=== PATIENT | male | born 1970 | race Caucasian/White ===

== ENCOUNTER 2019-12-10 11:34 | Emergency (ER) | payer BC, SELFPAY ==
[2019-12-10 11:40] VITALS: BP 147/106; PULSE 79; RESP 18; TEMP 36.8; O2SAT 95
--- NOTE | 2019-12-10 12:04 | ED.GENADUL_ITS ---
Discharge Plan Disposition Patient Disposition: HOME Condition: Stable Discharge Details Chief Complaint: RespSymp Clinical Impression: Sinus congestion, Cough Primary Care Provider: Unknown,Unknown ED Provider: Loy Pruitt Home Meds and New Rx's Prescriptions: Continued ibuprofen 800 mg Tablet 800 mg PO BID PRNRF: 0 diltiazem HCl 300 mg Capsule,Extended Release 24 Hr 300 mg PO QAM RF: 0 levothyroxine 25 mcg Tablet 37 mcg PO DAILY RF: 0 montelukast 10 mg Tablet 10 mg PO DAILY RF: 0 zolpidem 10 mg Tablet 10 mg PO QHS PRNRF: 0 Discharge Instructions Additional Instructions: I suspect you are having seasonal allergies. Please use [id number] antihistamine like Sadia??dose according to label. COVID-19 testing was performed today and result is pending. Please maintain self-isolation and quarantine until result is available. Please contact your primary care physician to arrange follow-up. Return to the ER for any worsening or new concerning symptoms. Stand Alone Forms: PENDING COVID-19 TESTING Medical Decision Making 49-year-old male here with cough and sinus congestion since yesterday. Patient is afebrile, lungs are clear to auscultation, saturating well in no respiratory distress and hemodynamically stable. I believe patient symptoms are likely secondary to seasonal allergies. 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 Will send COVID-19 testing. Patient was advised of his mildly elevated blood pressure. He notes he just took his antihypertensive medication prior to arrival. I encouraged him to discuss this with his primary care physician. Patient notes he does not currently have a primary care physician in the area. I will ask care management to assist in arranging outpatient follow-up for establishment with primary care. HPI General Mode of arrival: ambulatory . Date/Time Provider Initiated Documentation: 12/10/19 11:36 . Limitations to Documentation: no limitations . Information obtained by: patient . 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 Patient notes cough and sinus congestion since yesterday. Symptoms are mild to moderate. He had some associated difficulty breathing because of the congestion yesterday. Symptoms improved today. No shortness of breath. No fever. No concerning travel history. Patient believes his symptoms are secondary to seasonal allergies. Patient was advised to seek medical assessment by his employer for COVID-19 testing. Related Data Home Medications Medication Instructions Recorded Confirmed diltiazem HCl 300 mg PO QAM 12/10/19 12/10/19 ibuprofen 800 mg PO BID PRN 12/10/19 12/10/19 levothyroxine 37 mcg PO DAILY 12/10/19 12/10/19 montelukast 10 mg PO DAILY 12/10/19 12/10/19 zolpidem 10 mg PO QHS PRN 12/10/19 12/10/19 Allergies Allergy/AdvReac Type Severity Reaction Status Date / Time No Known Allergies Allergy Unverified 12/10/19 11:53 General Stated Complaint: RespSymp GUNJAN: 4 Review of Systems All systems reviewed & are unremarkable except as noted in HPI and below Constitutional Constitutional: Denies fever(s) ENT Ears, Nose, Mouth, and Throat: Reports other (Sinus congestion) Cardiovascular Cardiovascular: Denies dyspnea Respiratory Respiratory: Reports cough and Denies dyspnea PFSH Social History Smoking/Tobacco Use Status: Current every day Tobacco Type: cigarettes Alcohol Intake: never Substance use type: does not use Do you feel safe at home: Yes Do you feel safe in your relationship?: Yes Exam Const General: cooperative and no acute distress HENCO General nose exam: nares normal Mouth: moist mucous membranes Throat: posterior oropharynx normal Eyes Conjunctivae: normal conjunctivae Sclera: normal sclerae Neck Neck: trachea midline and supple Resp Auscultation: clear to auscultation bilaterally, no rales, no rhonchi and no wheezes Cardio Rate: regular rate and not tachycardic Rhythm: regular rhythm Skin General skin exam: no rashes or lesions noted Neuro General: patient alert, patient awake and tone normal Psych Appearance: grossly normal Mental Status: mental status grossly normal Course Vital Signs Vital signs: Vital Signs Temperature 36.8 C 12/10/19 11:40 Pulse 79 12/10/19 11:40 Respiratory Rate 18 12/10/19 11:40 Blood Pressure 147/106 H 12/10/19 11:40 Pulse Oximetry 95 12/10/19 11:40 Temperature 36.8 C 12/10/19 11:40 Temperature Source Skin 12/10/19 11:40 Pulse 79 12/10/19 11:40 Respiratory Rate 18 12/10/19 11:40 Respiratory Effort Non-Labored 12/10/19 11:46 Respiratory Depth Normal 12/10/19 11:46 Blood Pressure 147/106 H 12/10/19 11:40 Blood Pressure Position Sitting 12/10/19 11:40 Pulse Oximetry 95 12/10/19 11:40 Oxygen Delivery Method Room Air 12/10/19 11:40 Oxygen Flow Rate 0 12/10/19 11:40 Pain Level 3 12/10/19 11:40 Comment 12/10/19 11:40
[2019-12-10 12:14] VITALS: BP 135/100; PULSE 79; RESP 18; TEMP 36.8; O2SAT 95
--- NOTE | 2019-12-10 14:44 | NUR.NOTE ---
Nursing Note: Referral to Care Management for need of a PCP given to them. Deisy Lockett
--- NOTE | 2019-12-11 14:24 | PDOC.ERCMPRO ---
- If Service Date Differs Date of service: 12/11/19 Time of Service: 14:24 Care Management Progress Note At the request of ED provider, CONSTANTINO coordinates a referral to Hodan Morelos, on-call doc, of [facility] to assist Lauren in establishing care with a local PCP.
[2019-12-12 01:26] LABS: SARS-CoV-2 RNA Undetected (Undetected)
--- NOTE | 2019-12-12 07:55 | NUR.NOTE ---
Nursing Note: Contacted patient and notified of negative covid results
== END 2019-12-10 12:16 | disposition home or self-care (01) ==
PROVIDERS: Emergency Provider Student in an Organized Health Care Education/Training Program
DX: R09.81 Nasal congestion (principal); R05 Cough; F17.210 Nicotine dependence, cigarettes, uncomplicated; I10 Essential (primary) hypertension; Z03.818 Encounter for observation for suspected exposure to other biological agents ruled out
CPT/HCPCS: 99282; U0003; 99283

== ENCOUNTER 2020-08-15 03:41 | Outpatient (CLI) | payer OTHER, SELFPAY ==
--- NOTE | 2020-08-15 | DI.MRI_ITS ---
EXAM: MR LOWER JOINT LT WO CLINICAL HISTORY: LT KNEE PAIN, SWELLING. TECHNIQUE: Multiplanar multisequence MRI was performed. COMPARISON: No exams were available for comparison FINDINGS: BONES: Small contusion involving the medial aspect of the medial tibial plateau. JOINTS: Articular cartilage is unremarkable. There is a small joint effusion. TENDONS: Extensor mechanism: Unremarkable. Medial retinaculum: Unremarkable. Lateral retinaculum: Unremarkable. Popliteus: Unremarkable. MUSCLES: Unremarkable. MENISCI: There is abnormal signal in the body of the medial meniscus consistent with a tear. The lat eral meniscus is unremarkable. SOFT TISSUES: Unremarkable. LIGAMENTS: Anterior Cruciate: Unremarkable. Posterior Cruciate: Unremarkable. Medial Collateral:There is MCL sprain. Lateral Collateral: Unremarkable. OTHER: There is a small popliteal cyst. IMPRESSION: 1. Findings of a tear of the body of the medial meniscus. 2. MCL sprain. 3. Contusion involving the medial aspect of the tibial plateau. DATA REPOSITORY:
== END 2020-08-15 04:01 ==
PROVIDERS: PCP Internal Medicine; Visit Provider Nurse Practitioner Family
DX: S83.242A Other tear of medial meniscus, current injury, left knee, initial encounter (principal); S83.412A Sprain of medial collateral ligament of left knee, initial encounter
CPT/HCPCS: 73721

== ENCOUNTER 2020-09-17 15:42 | Outpatient (CLI) | payer OTHER, SELFPAY ==
--- NOTE | 2020-09-17 14:15 | DI.RAD_ITS ---
Exam(s) XR KNEE LT 3V AP,LAT,GAYLE EXAM: XR KNEE LT 3V AP,LAT,GAYLE CLINICAL HISTORY: left knee pain. TECHNIQUE: 2D digital imaging was performed. COMPARISON: No exams were available for comparison FINDINGS: There is no evidence of fracture but there does appear to be a small joint effusion. No degenerative changes. No osseous lesions. Bone density is age-appropriate. IMPRESSION: DATA REPOSITORY: RADIATION DOSE DELIVERED:
== END 2020-09-17 15:43 | disposition home or self-care (01) ==
LOC: DIORS 15:43
PROVIDERS: PCP Internal Medicine; Visit Provider Student in an Organized Health Care Education/Training Program
DX: M25.562 Pain in left knee (principal); M25.462 Effusion, left knee
CPT/HCPCS: 73562

== ENCOUNTER 2021-04-08 02:22 | Outpatient (CLI) | payer BC, SELFPAY ==
[2021-04-08 14:14] LABS: Source Nasal/Nares
[2021-04-08 21:48] LABS: COVID-19 PCR Negative (Negative)
== END 2021-04-08 02:23 | disposition home or self-care (01) ==
LOC: LBO 02:22
PROVIDERS: PCP Internal Medicine; Visit Provider Student in an Organized Health Care Education/Training Program
DX: Z20.822 Contact with and (suspected) exposure to COVID-19 (principal)
CPT/HCPCS: 87635

== ENCOUNTER 2021-04-10 06:15 | Day surgery (SDC) | payer BC, OTHER, SELFPAY ==
[2021-04-10] VITALS (12 sets, daily range): BP systolic 98–136; BP diastolic 59–82; PULSE 42–81; RESP 12–19; TEMP 36.5–36.7; TEMPC 36.3; O2SAT 96–100; BMI 33.3
--- NOTE | 2021-04-10 07:00 | W.ANESPRE ---
General Info Date of Service Date Performed: 04/10/21 Height: 5 ft 9.5 in Weight: 103.873 kg Body Mass Index (BMI): 33.3 Surgical Procedure: Operation Date: 04/10/21 07:40 Proposed Procedures Side Surgeon p Knee Arthroscopy w/meniscal,chondral and synovial Left Rustam Monterroso MD Meds Allergies and Home Medications Allergies Allergy/AdvReac Type Severity Reaction Status Date / Time Penicillins Allergy Unknown Other (See Unverified 04/10/21 06:39 Comment) Home Medication Medication Instructions Recorded diltiazem HCl 300 mg PO QAM 12/10/19 levothyroxine 37 mcg PO DAILY 12/10/19 montelukast 10 mg PO DAILY 12/10/19 zolpidem 10 mg PO QHS PRN 12/10/19 atorvastatin 20 mg tablet 20 mg PO DAILY 09/17/20 aspirin 81 mg PO DAILY 14 Days #14 tab 04/10/21 naproxen 250 - 500 mg PO BID PRN #40 tab 04/10/21 oxycodone 5 - 10 mg PO Q4H PRN #16 tab 04/10/21 Current Visit Medications: Current Medications Generic Name Dose Route Start Last Admin Trade Name Freq PRN Reason Stop Dose Admin Ringer's Solution 1,000 mls @ 100 mls/hr 04/10/21 06:00 IV 05/09/21 23:59 INFUSION FREIDA Cefazolin Sodium/Dextrose 2 gm in 50 mls @ 100 mls/hr 04/10/21 06:00 Ancef Duplex IVPB 05/09/21 23:59 PREOP FREIDA IV Miscellaneous Supplies 1 each 04/10/21 06:00 Iv Access IV 05/09/21 23:59 DIRECTED FREIDA Sodium Chloride 0 ml 04/10/21 06:00 Normal Saline Flush 10 Ml Syr IV 05/09/21 23:59 PRN PRN Sodium Chloride 0 ml 04/10/21 06:00 Normal Saline 10 Ml Vial IJ 05/09/21 23:59 DIRECTED PRN Sterile Water 0 ml 04/10/21 06:00 Water,Injection,Sterile 10 Ml Vial IJ 05/09/21 23:59 DIRECTED PRN PFSH Active Problems Active Problems: Problem Status Onset Code Hypertension I10 Hypothyroidism E03.9 Hyperlipidemia E78.5 Insomnia G47.00 Tear of meniscus, knee, medial S83.249A Contusion of left tibia S80.12XA Medical History Active Problem List Hypertension (Chronic) Hypothyroidism (Chronic) Hyperlipidemia (Acute) Insomnia (Acute) Tear of meniscus, knee, medial (Acute) Contusion of left tibia (Acute) Medical History Awareness under anesthesia Renal calculi 2011 Right wrist fracture 2006 Medical History Comments:: Pt. states during his kidney stone removal and specifically his wrist surgery he remembers waking up and asking the surgeon Is that supposed to hurt? Surgical History Surgical History History of open reduction and internal fixation (ORIF) procedure (2006) right wrist orif, hardware removed in 2013 S/P cystoscopy with ureteral stent placement (2011) left ureteroscopy, laser lithotripsy, stone extraction Tobacco Smoking/Tobacco Use Status: Never Alcohol Alcohol Intake: current Alcohol intake frequency: a few times a month Alcohol type: beer Substance Use Substance use: Never Substance use type: does not use Details: several weeks since last intake of alcohol Vital Signs and Lab Results Vital Signs Most Recent Vital Signs in EMR: Most Recent Vital Signs Temp Pulse Resp BP Pulse Ox 36.7 C 67 16 120/82 96 04/10/21 06:44 04/10/21 06:44 04/10/21 06:44 04/10/21 06:44 04/10/21 06:44 Lab Results Blood Type / Crossmatch: No Data to Display Complete Blood Count: No Data to Display Complete Metabolic Panel: No Data to Display Liver Function Panel: No Data to Display Coagulation Panel: No Data to Display Cardiac Panel: No Data to Display Arterial Blood Gas: No Data to Display Venous Blood Gas: No Data to Display Pancreas Panel: No Data to Display Thyroid Panel: No Data to Display Infectious Disease: Coronavirus (COVID-19)(PCR) Negative (Negative) 04/08/21 10:25 04/08/21 Coronavirus 2019 Source Nasal/Nares 04/08/21 10:25 04/08/21 Blood Cultures: No Data to Display Toxicology Panel: No Data to Display Anesthesia Assessment and Plan Anesthesia History Personal History: Awareness Under Anesthesia Family History: No Family History of Anesthesia Complications Exercise Tolerance Exercise Tolerance: Metabolic Equivalents>4 Pertinent Negatives Pertinent Negatives: No Symptoms of GERD, No Major Cardiovascular Symptoms or Complaints, No Major Pulmonary Symptoms or Complaints and No History of CVA/TIA Cardiac & Pulmonary Exam Cardiac Exam: Normal S1/S2 Heart Sounds Pulmonary Exam: Clear Bilateral Breath Sounds Implantable Cardiac Device Does patient have a Pacemaker or an ICD?: No Airway Exam Known Difficult Airway: No Mallampati Class: 1 Mouth Opening: Normal (> 3cm) Thyromental Distance: Greater than 3 cm Neck Range of Motion: Full ROM Neck Circumference: Normal Teeth Condition: Normal Dentition Airway Comments: Crowns back lower ASA Classification ASA Score: ASA 2 Emergency Case?: No NPO Status NPO Status: NPO Clears >2 hours, Solids >8 hours Anesthesia Plan Resuscitation Status: Full Code Anesthesia Technique: General Anesthesia Airway Planned: LMA Monitors Used: Standard Monitors
[2021-04-10] MEDS: Lactated Ringers 1,000 ML 100 ML IV (07:24)
[2021-04-10] MEDS: ceFAZolin 2 GM/50 ML BAG IVPB (07:44)
[2021-04-10] MEDS: MORPHine 4 MG/ML SYR (08:30)
[2021-04-10] MEDS: EPINEPHrine 30 MG/30 ML VIAL (08:30)
--- NOTE | 2021-04-10 08:56 | W.PM.OP ---
Date of service: 04/10/21 Time of Service: 07:30 Operative Note Operative Note DATE OF PROCEDURE: 04/10/21 PRE-OP DIAGNOSIS: Left knee 1. Medial meniscus tear POST-OP DIAGNOSIS: same PROCEDURE: Left knee 1. Partial medial meniscectomy, CPT #96451 SURGEON: Rustam Monterroso COMPOSITION PROFESSOR: None None ANESTHESIA TYPE: Local By Surgeon and General LMA/ETT Refer to Anesthesia Record ESTIMATED BLOOD LOSS: 5 PATHOLOGY: none sent TOURNIQUET TIME: 0 Patient was transported to: PACU Patient's condition: stable Indications: Please see complete medical record for details. Findings: Exam under anesthesia: Full range of motion, no instability Arthroscopic findings: Significant, complex posterior horn medial meniscus tear. Radial component middle of the posterior horn about 50% white zone into the red-white zone with minor extension horizontally into the posterior horn inferior leaflet and more significant parrot-beak type flap extension towards the posterior horn meniscal body junction flipped behind the medial tibial plateau. Majority intact superior 50% leaflet. Largely intact articular cartilage throughout. Intact ACL. Intact lateral meniscus. Procedure Description: In the operating room, genral anesthesia was induced. The patient was positioned supine on the operating room table. All bony prominences were well-padded. Preoperative antibiotics were administered. The knee was prepped and draped in the usual sterile fashion. The correct patient, procedure, and side of the procedure were all verified prior to incision. Exam under anesthesia was performed. 10 cc of 0.25% bupivacaine containing epinephrine was infiltrated about the planned anteromedial and anterolateral knee arthroscopy portals. The portals were established and a complete diagnostic arthroscopy was performed with relevant findings detailed above. The mechanical shaver was used to remove redundant synovium from the anteromedial, anterolateral, and intercondylar areas to optimize visualization. Using a combination of hand instruments including meniscal biters and a power shaver and working through the anteromedial and anterolateral compartments the meniscus was debrided of all torn tissue to a stable margin. The center of the tear was debrided in a radial fashion with contouring into the posterior horn and with resection of the inferior displaced parrot-beak leaflet followed by contouring into the meniscal body. Care was taken to preserve as much meniscus tissue was possible. The meniscal remnant was probed and found to have a stable margin, stable root, and no other tears. The arthroscope was driven through the notch into the posterior medial compartment completing diagnostic arthroscopy and confirming no additional pathology or loose bodies posterior to the zone of injury. Under direct arthroscopic visualization an 18-gauge needle was passed into the knee from superolateral into the suprapatellar pouch. The knee was copiously irrigated with arthroscopic fluid until there was a clear effluent before being drained of all fluid. The anteromedial and anterolateral portals were closed in 3-0 Monocryl in a buried interrupted fashion. 20 cc of 0.25% bupivacaine with epinephrine containing 4 mg of morphine was infiltrated into the knee through the previously placed needle. Mastisol, Steri-Strips, and 4 x 4 gauze were applied over the incisions followed by sterile soft roll. The knee was then wrapped gently with an VALERIA comressive bandage. The patient awoke from anesthesia without complication and was transferred to the recovery room in a stable condition.
--- NOTE | 2021-04-10 08:58 | W.PM.DSUDISC ---
Discharge Plan Disposition Patient Disposition: HOME Condition: Stable Discharge Details Reason For Visit: Left knee surgery Attending Provider: Rustam Monterroso Primary Care Provider: Henry Corey Home Meds and New Rx's Prescriptions: New naproxen 250 mg tablet 250 - 500 mg PO BID PRN (Reason: Moderate pain or swelling) Qty: 40 RF: 0 aspirin 81 mg tablet,delayed release (DR/EC) 81 mg PO DAILY 14 Days Qty: 14 RF: 0 oxycodone 5 mg tablet 5 - 10 mg PO Q4H PRN (Reason: moderate to severe pain) Qty: 16 RF: 0 Continued atorvastatin 20 mg tablet 20 mg PO DAILY RF: 0 diltiazem HCl 300 mg Capsule,Extended Release 24 Hr 300 mg PO QAM RF: 0 levothyroxine 25 mcg Tablet 37 mcg PO DAILY RF: 0 montelukast 10 mg Tablet 10 mg PO DAILY RF: 0 zolpidem 10 mg Tablet 10 mg PO QHS PRNRF: 0 Discontinued ibuprofen 800 mg Tablet 800 mg PO BID PRNRF: 0 Discharge Instructions Additional Instructions: Surgery: Left knee arthroscopy with partial medial meniscectomy Activity: Weightbearing as tolerated. Advance range of motion as comfort allows. No knee brace or crutches needed as soon as comfortable. Recommend avoiding sports, pivoting, and squatting for 6-8 weeks. A physical therapy prescription will be sent electronically to start in 2 to 3 weeks. Prescriptions: Aspirin 81 mg take 1 daily to prevent a blood clot for 14 days Naproxen 250 mg take 1-2 every 12 hours with a meal as needed for moderate pain Oxycodone 5 mg take 1-2 every 4-6 hours as needed for severe pain You may use [id number] Tylenol (acetaminophen) as needed for mild pain. These pain medications may be taken all at once or in different combinations as needed. Also, recommend Colace (docusate) as a stool softener as surgery and pain medicine cause constipation. Dressings: Leave dressing in place for 3 days. May then remove and leave open to air or cover incisions with Band-Aids. May shower after 5 days. Follow-up: 10-[address] Monterroso Let us know right away if you develop any redness, drainage, fevers, chest pain, or trouble breathing. Do not drink alcohol or drive for at least 24 hours after anesthesia. Please call the office during business hours with any questions or concerns. Referrals: Rustam Monterroso MD [ [facility] STAFF PHYSICIAN] - Discharge Orders Discharge Orders: Discharge Order (Routine); Ordered 04/10/21 Ordered By: Rustam Monterroso DS: Diagnosis Discharge Diagnosis (1) Tear of meniscus, knee, medial: Status: Acute (2) Contusion of left tibia: Status: Acute
[2021-04-10] MEDS: fentaNYL 100 MCG/2 ML VIAL IVP (09:18)
--- NOTE | 2021-04-10 09:42 | W.ANESPOSTOP ---
Postoperative Evaluation Date, Time and Location Date Performed: 04/10/21 Time Performed: 09:42 Patient Location: Day Surgery Unit Vital Signs Most Recent Imported Vital Signs: Most Recent Vital Signs Temp Pulse Resp BP Pulse Ox 36.6 C 42 L 17 121/68 99 04/10/21 09:27 12 09:27 12 09:27 04/10/21 09:27 04/10/21 09:27 Most Recent Manually Entered Vital Signs: Adult Blood Pressure: 128/72 Heart Rate: 81 Respirations: 12 Oxygen Saturation (%): 98 Temperature (C): 36.3 C Pain Score (0-10 Scale): 3 Pain Score Most Recent Pain Score: Most Recent Pain Score Pain Level 3 04/10/21 09:27 Assessment Mental Status: Awake (Alert & Oriented to Patient Baseline) Airway and Respiratory Function: Patent airway with normal (patient baseline) respiratory exam Cardiovascular Function: Hemodynamically Stable Hydration Status: Adequately Hydrated Nausea & Vomiting: No Nausea or Vomiting Pain: Pt. Denies Any Pain Peripheral Nerve Block: Patient did not receive a nerve block
== END 2021-04-10 06:16 | disposition home or self-care (01) ==
PROVIDERS: PCP Internal Medicine; Visit Provider Student in an Organized Health Care Education/Training Program
PROC: (CPT 29870; principal; 2021-04-10 07:30)
DX: S83.232A Complex tear of medial meniscus, current injury, left knee, initial encounter (principal); X58.XXXA Exposure to other specified factors, initial encounter
CPT/HCPCS: 29881; J0131; J0690; J1100; J1885; J2001; J2250; J2270; J2405; J3010

== ENCOUNTER 2021-12-09 14:06 | Outpatient (CLI) | payer OTHER, SELFPAY ==
--- NOTE | 2021-12-09 13:45 | DI.RAD_ITS ---
Exam(s) XR KNEE LT 3V AP,LAT,GAYLE EXAM: XR KNEE LT 3V AP,LAT,GAYLE CLINICAL HISTORY: left knee pain. TECHNIQUE: 2D digital imaging was performed. Three views. COMPARISON: CR XR KNEE LT 3V AP,LAT,GAYLE from 09/17/2020 FINDINGS: BONES: No acute fracture is present. No bony destructive lesion is seen. JOINTS: The knee is normally aligned. No joint effusion is seen. Minimal periarticular spurring. SOFT TISSUE: Normal. IMPRESSION: Minimal degenerative changes. DATA REPOSITORY: RADIATION DOSE DELIVERED:
== END 2021-12-09 14:07 | disposition home or self-care (01) ==
LOC: DIORS 14:06
PROVIDERS: PCP Internal Medicine; Referring Provider Internal Medicine; Visit Provider Physician Assistant
DX: S83.242A Other tear of medial meniscus, current injury, left knee, initial encounter (principal); M17.12 Unilateral primary osteoarthritis, left knee; X58.XXXA Exposure to other specified factors, initial encounter
CPT/HCPCS: 73562

== ENCOUNTER → 2022-01-14 02:13 | Outpatient (CLI) | payer OTHER, SELFPAY ==
--- NOTE | 2022-01-14 07:00 | DI.MRI_ITS ---
Exam(s) MR LOWER JOINT LT WO EXAM: MR LOWER JOINT LT WO CLINICAL HISTORY: LEFT KNEE PAIN,TEAR OF MEDIAL MENISCUS,CONTUSION LT TIBIA,S83.249A,S80.12XA. TECHNIQUE: Multiplanar multisequence MRI was performed. COMPARISON: MR MR LOWER JOINT LT WO from 08/15/2020 CR XR KNEE LT 3V AP,LAT,GAYLE from 12/09/2021 FINDINGS: BONES: There is no fracture or contusion pattern. JOINTS: Articular cartilage is unremarkable. No effusion is present. TENDONS: Extensor mechanism: Unremarkable. Medial retinaculum: Unremarkable. Lateral retinaculum: Unremarkable. Popliteus: Unremarkable. MUSCLES: Unremarkable. MENISCI: There is intermediate signal seen in the body of the medial meniscus likely reflecting degen eration. No evidence of a tear. The lateral meniscus is unremarkable. SOFT TISSUES: Unremarkable. LIGAMENTS: Anterior Cruciate: Unremarkable. Posterior Cruciate: Unremarkable. Medial Collateral:Unremarkable. Lateral Collateral: Unremarkable. OTHER: There is a small popliteal cyst. IMPRESSION: 1. No acute abnormality. 2. Intermediate signal seen in the body of the medial meniscus which may reflect degeneration. 3. Small popliteal cyst. DATA REPOSITORY:
== END ==
PROVIDERS: PCP Internal Medicine; Visit Provider Student in an Organized Health Care Education/Training Program
DX: S80.12XA Contusion of left lower leg, initial encounter (principal); X58.XXXA Exposure to other specified factors, initial encounter
CPT/HCPCS: 73721

== ENCOUNTER 2022-03-26 08:11 | Day surgery (SDC) | payer OTHER, SELFPAY ==
[2022-03-20 13:55] VITALS: BP 115/77; PULSE 50; RESP 14; TEMP 36.4; O2SAT 98
[2022-03-26] VITALS (11 sets, daily range): BP systolic 84–128; BP diastolic 52–85; PULSE 45–66; RESP 13–18; TEMP 36–36.7; O2SAT 94–99; BMI 32.6
[2022-03-26] MEDS: Lactated Ringers 1,000 ML 30 ML IV (09:06)
--- NOTE | 2022-03-26 10:10 | ANES.PREOP_ITS ---
General Info Date of Service Date Performed: 03/26/22 Height: 5 ft 9.5 in Weight: 101.7 kg Body Mass Index (BMI): 32.6 Surgical Procedure: Operation Date: 03/26/22 10:40 Proposed Procedure Side Surgeon p Knee Arthroscopy w/ any indicated meniscal,chondral and synovial surgery Left Rustam Monterroso MD Meds Allergies and Home Medications Allergies Allergy/AdvReac Type Severity Reaction Status Date / Time Penicillins Allergy Unknown Other (See Verified 03/24/22 13:04 Comment) Home Medication Medication Instructions Recorded diltiazem HCl 300 mg capsule,24 300 mg PO QAM 12/10/19 hr,extended release montelukast 10 mg tablet 10 mg PO DAILY 12/10/19 zolpidem 10 mg tablet 10 mg PO QHS PRN 12/10/19 atorvastatin 20 mg tablet 20 mg PO DAILY 09/17/20 levothyroxine 25 mcg tablet 0.15 mcg PO DAILY 03/16/22 lisinopril 10 mg tablet 10 mg PO DAILY 03/16/22 aspirin 81 mg tablet,delayed 81 mg PO DAILY Prevent blood clot 03/26/22 release 14 days #14 tabs naproxen 250 mg tablet 250 - 500 mg PO BID PRN #40 tabs 03/26/22 oxycodone 5 mg tablet 5 - 10 mg PO Q4H PRN moderate to 03/26/22 severe pain #18 tabs Current Visit Medications: Current Medications Generic Name Dose Route Start Last Admin Trade Name Freq PRN Reason Stop Dose Admin Ringer's Solution 1,000 mls @ 30 mls/hr 03/26/22 06:00 03/26/22 09:06 IV 03/26/22 16:00 30 mls/hr INFUSION FREIDA Administration Cefazolin Sodium/Dextrose 2 gm in 50 mls @ 100 mls/hr 03/26/22 06:00 Ancef Duplex IVPB 03/26/22 23:59 PREOP [facility] IV Miscellaneous Supplies 1 each 03/26/22 06:00 Iv Access IV 03/26/22 23:59 DIRECTED FREIDA Oxycodone HCl 0 mg 03/26/22 08:35 Oxycodone 5 Mg Tab PO Q3H PRN PRN Pain Sodium Chloride 0 ml 03/26/22 06:00 Normal Saline Flush 10 Ml Syr IV 03/26/22 23:59 PRN PRN Sodium Chloride 0 ml 03/26/22 06:00 Normal Saline 10 Ml Vial IJ 03/26/22 23:59 DIRECTED PRN Sterile Water 0 ml 03/26/22 06:00 Water,Injection,Sterile 10 Ml Vial IJ 03/26/22 23:59 DIRECTED PRN PFSH Active Problems Active Problems: Problem Status Onset Code Acute medial meniscus tear of left knee S83.242A Hypertension I10 Hypothyroidism E03.9 Hyperlipidemia E78.5 Insomnia G47.00 Chondromalacia of patella, 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 states during his kidney stone removal and specifically his wrist surgery he remembers waking up and asking the surgeon Is that supposed to hurt? Surgical History Surgical History History of esophagogastroduodenoscopy (EGD) Findings per patient old blood; 03/23/[address] [facility] History of open reduction and internal fixation (ORIF) procedure (2006) right wrist orif, hardware removed in 2013 S/P cystoscopy with ureteral stent placement (2011) left ureteroscopy, laser lithotripsy, stone extraction Tobacco Smoking/Tobacco Use Status: Never Alcohol Alcohol Intake: current Alcohol intake frequency: a few times a month Alcohol type: beer Substance Use Substance use: Never Substance use type: does not use Vital Signs and Lab Results Vital Signs Most Recent Vital Signs in EMR: Most Recent Vital Signs Temp Pulse Resp BP Pulse Ox 36.6 C 66 16 114/84 97 03/26/22 08:39 03/26/22 08:39 03/26/22 08:39 03/26/22 08:39 03/26/22 08:39 Lab Results Blood Type / Crossmatch: No Data to Display Complete Blood Count: No Data to Display Complete Metabolic Panel: No Data to Display Liver Function Panel: No Data to Display Coagulation Panel: No Data to Display Cardiac Panel: No Data to Display Arterial Blood Gas: No Data to Display Venous Blood Gas: No Data to Display Pancreas Panel: No Data to Display Thyroid Panel: No Data to Display Infectious Disease: No Data to Display Blood Cultures: No Data to Display Toxicology Panel: No Data to Display Anesthesia Assessment and Plan Anesthesia History Personal History: Awareness Under Anesthesia Family History: Other Exercise Tolerance Exercise Tolerance: Metabolic Equivalents>4 Pertinent Negatives Pertinent Negatives: No Symptoms of GERD, No Major Cardiovascular Symptoms or Complaints, No Major Pulmonary Symptoms or Complaints and No History of CVA/TIA Cardiac & Pulmonary Exam Cardiac Exam: Normal S1/S2 Heart Sounds Pulmonary Exam: Clear Bilateral Breath Sounds Implantable Cardiac Device Does patient have a Pacemaker or an ICD?: No Airway Exam Known Difficult Airway: No Mallampati Class: 1 Mouth Opening: Normal (> 3cm) Thyromental Distance: Greater than 3 cm Neck Range of Motion: Full ROM Neck Circumference: Normal Teeth Condition: Normal Dentition Airway Comments: Crowns back lower ASA Classification ASA Score: ASA 2 Emergency Case?: No NPO Status NPO Status: NPO Clears >2 hours, Solids >8 hours Anesthesia Plan Resuscitation Status: Full Code Anesthesia Technique: General Anesthesia Airway Planned: LMA Monitors Used: Standard Monitors
[2022-03-26] MEDS: ceFAZolin 2 GM/50 ML BAG IVPB (11:14)
[2022-03-26] MEDS: MORPHine 4 MG/ML SYR (11:35)
[2022-03-26] MEDS: Bupivacaine 0.5% Pres-Free W/EPI 30 ML VIAL (11:36)
[2022-03-26] MEDS: EPINEPHrine 30 MG/30 ML VIAL (12:05)
--- NOTE | 2022-03-26 12:30 | W.PM.DSUDISC ---
Date of service: 03/26/22 Time of Service: 12:30 Discharge Plan Disposition Patient Disposition: HOME Condition: Good Discharge Details Attending Provider: Rustam Monterroso Primary Care Provider: Henry Corey Home Meds and New Rx's Prescriptions: New naproxen 250 mg tablet 250 - 500 mg PO BID PRNQty: 40 0RF Rx Instructions: take with a meal aspirin 81 mg tablet,delayed release (DR/EC) 81 mg PO DAILY 14 Days Qty: 14 0RF oxycodone 5 mg tablet 5 - 10 mg PO Q4H MDD 30 mg PRN (Reason: moderate to severe pain) Qty: 18 0RF Continued lisinopril 10 mg tablet 10 mg PO DAILY atorvastatin 20 mg tablet 20 mg PO DAILY diltiazem HCl 300 mg Capsule,Extended Release 24 Hr 300 mg PO QAM montelukast 10 mg Tablet 10 mg PO DAILY zolpidem 10 mg Tablet 10 mg PO QHS PRN levothyroxine 25 mcg tablet 0.15 mcg PO DAILY Rx Instructions: takes .150 mcg Discontinued ibuprofen 800 mg tablet 800 mg PO Q8H Discharge Instructions Additional Instructions: Surgery: Left knee arthroscopy with revision partial medial meniscectomy and partial lateral meniscectomy Activity: Weightbearing as tolerated. Advance range of motion as comfort allows. No knee brace or crutches needed as soon as comfortable. Recommend avoiding sports, pivoting, and squatting for 6-8 weeks. Avoid long days on feet for about 3 months. A physical therapy prescription will be provided separately in the office at follow-up when needed. Prescriptions: Aspirin 81 mg take 1 daily to prevent a blood clot for 14 days Naproxen 250 mg take 1-2 every 12 hours with a meal as needed for moderate pain Oxycodone 5 mg take 1-2 every 4-6 hours as needed for severe pain You may use [id number] Tylenol (acetaminophen) as needed for mild pain. These pain medications may be taken all at once or in different combinations as needed. Also, recommend Colace (docusate) as a stool softener as surgery and pain medicine cause constipation. You may try [id number] diphenhydramine (Benadryl) 25-50 mg nightly as a sleep aid Dressings: Leave dressing in place for 3 days. May then remove and leave open to air or cover incisions with Band-Aids. May shower after 5 days. Follow-up: 10-[address] Monterroso You may take off the leg compression stockings this evening at home. You may also leave them on a few days longer if you have a history of leg swelling or edema. Let us know right away if you develop any redness, drainage, fevers, chest pain, or trouble breathing. Do not drink alcohol or drive for at least 24 hours after anesthesia. Please call the office during business hours with any questions or concerns. DS: Diagnosis Discharge Diagnosis (1) Acute medial meniscus tear of left knee: Status: Acute
--- NOTE | 2022-03-26 12:38 | W.PM.OP ---
Date of service: 03/26/22 Time of Service: 12:38 Operative Note Operative Note DATE OF PROCEDURE: 03/26/22 PRE-OP DIAGNOSIS: Left knee 1. Recurrent medial meniscus tear 2. Chondromalacia patella POST-OP DIAGNOSIS: same Left knee 1. Recurrent medial meniscus tear 2. Chondromalacia patella 3. Lateral meniscus tear PROCEDURE: Left knee 1. Revision partial medial meniscectomy and partial lateral meniscectomy, CPT #97850 SURGEON: Rustam Monterroso THERAPEUTIC MASSAGE TECHNICIAN: None None ANESTHESIA TYPE: Local By Surgeon and General LMA/ETT Refer to Anesthesia Record ESTIMATED BLOOD LOSS: 5 PATHOLOGY: none sent TOURNIQUET TIME: 0 Patient was transported to: PACU Patient's condition: stable Indications: Please see complete medical record for details. Findings: Exam under anesthesia: Moderately small effusion. Full range of motion, stable, no significant mechanical symptoms Arthroscopic findings: Multiple soft cartilaginous synovial loose bodies. Only mild patellar trochlear chondromalacia. Only mild synovitis throughout. No significant adhesions. Intact ACL. Lateral meniscus with small white zone body tear and fraying at the root without any root instability or other tear. Medial meniscus with appearance consistent with prior meniscectomy. No obvious recurrent tearing, but on probing softening at the central zone of prior injury that propagated through the red-white zone to the capsular margin undersurface tear at the body and body posterior horn junction. Localized moderate chondromalacia medial to the patella medial femoral condyle. Anterior horn, posterior horn, and root intact. Procedure Description: In the operating room, genral anesthesia was induced. The patient was positioned supine on the operating room table. All bony prominences were well-padded. Preoperative antibiotics were administered. The knee was prepped and draped in the usual sterile fashion. The correct patient, procedure, and side of the procedure were all verified prior to incision. Exam under anesthesia was performed. 10 cc of 0.5% bupivacaine containing epinephrine was infiltrated about the planned anteromedial and anterolateral knee arthroscopy portals. The portals were established and a complete diagnostic arthroscopy was performed with relevant findings detailed above. Mechanical shaver was used to remove multiple cartilaginous and synovial loose bodies from the suprapatellar space, medial lateral gutters, and intercondylar area. Inflamed synovitis was resected from the patellofemoral compartment. The small lateral meniscus tears were readily resected to a stable margin using mechanical shaver. The medial meniscus was thoroughly inspected and probed. The shaver was used to smooth the margin about the zone of softening revealing degenerative type tissue that on probing propagated through the inferior leaflet to the capsular margin. Meniscal biters were used to resect this tissue to a stable margin, which involved resection to the capsule, and contouring adjacent meniscus anteriorly and posteriorly. A 21-gauge needle was used from direct medial using a single puncture outside in and then multiple punctures through the capsule and meniscus remnant as a form of trephination and simulation for healing. Mechanical shaver is used to smooth tissue margins. There is no additional tearing or meniscal instability. The superior leaflet of the meniscus was preserved and this zone in order to maintain some hoop stress dissipation and functional meniscus given the overwhelmingly reasonably healthy knee status. Under direct arthroscopic visualization an 18-gauge needle was passed into the knee from superolateral into the suprapatellar pouch. The knee was copiously irrigated with arthroscopic fluid until there was a clear effluent before being drained of all fluid. The anteromedial and anterolateral portals were closed in 3-0 Monocryl in a buried interrupted fashion. 20 cc of 0.5% bupivacaine with epinephrine containing 4 mg of morphine was infiltrated into the knee through the previously placed needle. Mastisol, Steri-Strips, and 4 x 4 gauze were applied over the incisions followed by sterile soft roll. The knee was then wrapped gently with an VALERIA comressive bandage. The patient awoke from anesthesia without complication and was transferred to the recovery room in a stable condition.
[2022-03-26] MEDS: HYDROmorphone 2 MG/ML SYR IVP ×2 (12:47→12:57)
[2022-03-26] MEDS: oxyCODONE 5 MG TAB PO (13:51)
--- NOTE | 2022-03-26 14:12 | W.ANESPOSTOP ---
Postoperative Evaluation Date, Time and Location Date Performed: 03/26/22 Time Performed: 13:08 Patient Location: PACU Vital Signs Most Recent Imported Vital Signs: Most Recent Vital Signs Temp Pulse Resp BP Pulse Ox 36 C L 50 L 16 117/85 99 03/26/22 13:49 03/26/22 13:49 03/26/22 13:49 03/26/22 13:49 03/26/22 13:49 Pain Score Most Recent Pain Score: Most Recent Pain Score Pain Level 3 03/26/22 13:49 Assessment Mental Status: Awake (Alert & Oriented to Patient Baseline) Airway and Respiratory Function: Patent airway with normal (patient baseline) respiratory exam Cardiovascular Function: Hemodynamically Stable Hydration Status: Adequately Hydrated Nausea & Vomiting: No Nausea or Vomiting Pain: Pain is tolerable per patient Peripheral Nerve Block: Patient did not receive a nerve block
== END 2022-03-26 14:32 | disposition home or self-care (01) ==
PROVIDERS: PCP Internal Medicine; Visit Provider Student in an Organized Health Care Education/Training Program
PROC: (CPT 29870; principal; 2022-03-26 10:30)
DX: S83.242A Other tear of medial meniscus, current injury, left knee, initial encounter (principal); M22.42 Chondromalacia patellae, left knee; S83.282A Other tear of lateral meniscus, current injury, left knee, initial encounter; X58.XXXA Exposure to other specified factors, initial encounter
CPT/HCPCS: 29880; J0690; J1100; J1170; J1885; J2270; J2405; J2704

== ENCOUNTER 2022-08-11 01:43 | Outpatient (CLI) | payer OTHER, SELFPAY ==
--- NOTE | 2022-08-11 07:00 | DI.MRI_ITS ---
Exam(s) MR LOWER JOINT LT WO EXAM: MR LOWER JOINT LT WO CLINICAL HISTORY: ? RECURRENT MENISCAL TEAR,ACUTE, CHONDROMALACIA, S83.242A,M22.42. TECHNIQUE: Multiplanar multisequence MRI was performed. COMPARISON: MR MR LOWER JOINT LT WO from 08/15/2020 MR MR LOWER JOINT LT WO from 01/14/2022 FINDINGS: BONES: There is no fracture or contusion pattern. JOINTS: A small joint effusion is present. Articular cartilage: Patellofemoral joint: Articular cartilage is unremarkable. Medial femoral tibial joint: Mild thinning and irregularity. No focal defect. Lateral femoral tibial joint: Articular cartilage is unremarkable. TENDONS: Extensor mechanism: Unremarkable. Medial retinaculum: Unremarkable. Lateral retinaculum: Unremarkable. Popliteus: Unremarkable. MUSCLES: Unremarkable. MENISCI: The medial meniscus appears diminutive at the body may be secondary to prior surgery. Clini correlation recommended. No change in appearance from prior exam with some amorphous signal in t he body and posterior horn. The lateral meniscus is unremarkable. SOFT TISSUES: Small Mckeon's cyst. LIGAMENTS: Anterior Cruciate: Unremarkable. Posterior Cruciate: Unremarkable. Medial Collateral:Unremarkable. Lateral Collateral: Unremarkable. OTHER: IMPRESSION: Stable appearance medial meniscus. No evidence of a superimposed acute tear. Mild cartilage thinning and irregularity of the medial femoral tibial joint. DATA REPOSITORY:
== END 2022-08-11 02:03 ==
PROVIDERS: PCP Internal Medicine; Visit Provider Student in an Organized Health Care Education/Training Program
DX: M25.562 Pain in left knee (principal); M25.462 Effusion, left knee; M22.42 Chondromalacia patellae, left knee; M71.22 Synovial cyst of popliteal space [Baker], left knee; M94.8X6 Other specified disorders of cartilage, lower leg
CPT/HCPCS: 73721

== ENCOUNTER 2024-04-25 03:25 | Outpatient (CLI) | payer BC, SELFPAY ==
--- NOTE | 2024-04-25 | DI.NM_ITS ---
Exam(s) NM GI BLEED TAGGED RBC GRP CLINICAL HISTORY: Anemia, D64.9; f/u stomach issues. COMPARISON: No exams were available for comparison EXAMINATION: Dose: 29.0 mCi ultra tagged red blood cells Images: Immediately for 1 minute followed by dynamic for 1 hour. FINDINGS: Normal dynamic imaging. Physiological excretion is present. No active bleeding is identified. IMPRESSION: No active bleeding is identified.
== END 2024-04-25 03:45 ==
LOC: DI 03:26
PROVIDERS: PCP Family Medicine; Visit Provider Family Medicine
DX: D64.9 Anemia, unspecified (principal)
CPT/HCPCS: 78278